=== PATIENT | male | born 1980 | race African-American/Black ===

== ENCOUNTER 2016-11-26 05:58 | Emergency (ER) | payer OTHER ==
[~2016-11-26] VITALS: Ht 193 cm; Wt 90.7 kg
[~2016-11-26 05:58] MED LIST: ACYCLOVIR 800800 MG PO; AUGMENTIN 875875 MG PO; CITRATE OF MAG296 ML PO; COLACE100 MG PO; DOXYCYCLINE 10100 MG PO; IBUPROFEN 600600 M1 PO; IBUPROFEN 800800 M1 PO; NOHOMEMEDICATIONS; NORCO 5-325 TA1 EACH PO; ONDANSETRON HCL4 M2 PO; PAXIL10 MG; PENICILLIN VK500 M1 PO; PREDNISONE 20 M20 MG PO
[2016-11-26 06:03] VITALS: BP 112/70
[2016-11-26] MEDS ORDERED: FLONASE 0.05%50 MCG NASAL (06:21)
[2016-11-26] MEDS ORDERED: CLARITIN10 MG PO (06:21)
[2016-11-26] MEDS ORDERED: AUGMENTIN 875-1 EACH PO (06:21)
== END 2016-11-26 07:27 | disposition home or self-care (01) ==
LOC: ER 05:58
DX: J32.8 Other chronic sinusitis (principal); J30.89 Other allergic rhinitis; B34.9 Viral infection, unspecified; Z91.013 Allergy to seafood; F17.210 Nicotine dependence, cigarettes, uncomplicated; F10.99 Alcohol use, unspecified with unspecified alcohol-induced disorder

== ENCOUNTER 2017-08-28 17:02 | Emergency (ER) | payer OTHER ==
[~2017-08-28] VITALS: Ht 193 cm; Wt 81.7 kg
[~2017-08-28 17:02] MED LIST changes: +AUGMENTIN 875-1 EACH PO; +CLARITIN10 MG PO; +FLONASE 0.05%50 MCG NASAL
[2017-08-28] MEDS ORDERED: ZOFRAN ODT8 MG PO (17:34)
== END 2017-08-28 18:06 | disposition home or self-care (01) ==
LOC: ER 17:02
DX: R11.2 Nausea with vomiting, unspecified (principal); F17.210 Nicotine dependence, cigarettes, uncomplicated; Z91.013 Allergy to seafood

== ENCOUNTER 2019-01-29 13:15 | Emergency (ER) | payer OTHER ==
[~2019-01-29] VITALS: Ht 193 cm; Wt 79.4 kg
[~2019-01-29 13:15] MED LIST changes: +ZOFRAN ODT8 MG PO
[2019-01-29 13:16] VITALS: BP 117/79
[2019-01-29] MEDS ORDERED: FLAGYL500 M1 PO (13:56)
[2019-01-29 14:05] LABS: URINE BILIRUBIN NEGATIVE (Negative); URINE BLOOD NEGATIVE (Negative); URINE CLARITY CLEAR; URINE COLOR YELLOW; URINE GLUCOSE-RANDOM* NEGATIVE (Negative); URINE KETONES NEGATIVE (Negative); URINE LEUKOCYTES-REFLEX NEGATIVE (Negative); URINE NITRITE-REFLEX NEGATIVE (Negative); URINE PROTEIN (DIPSTICK) NEGATIVE (Negative); URINE SPECIFIC GRAVITY 1.015 (1.005-1.035)
== END 2019-01-29 14:15 | disposition home or self-care (01) ==
LOC: ER 13:15
PROVIDERS: Physician Assistant
DX: Z20.2 Contact with and (suspected) exposure to infections with a predominantly sexual mode of transmission (principal); Z20.89 Contact with and (suspected) exposure to other communicable diseases; F17.210 Nicotine dependence, cigarettes, uncomplicated; Z91.013 Allergy to seafood

== ENCOUNTER 2019-02-25 13:19 | Emergency (ER) | payer OTHER ==
[~2019-02-25] VITALS: Ht 193 cm; Wt 81.7 kg
[~2019-02-25 13:19] MED LIST changes: +FLAGYL500 M1 PO
[2019-02-25 13:43] LABS: URINE BILIRUBIN NEGATIVE (Negative); URINE BLOOD NEGATIVE (Negative); URINE CLARITY CLEAR; URINE COLOR YELLOW; URINE GLUCOSE-RANDOM* NEGATIVE (Negative); URINE KETONES NEGATIVE (Negative); URINE LEUKOCYTES NEGATIVE (Negative); URINE NITRITE NEGATIVE (Negative); URINE PROTEIN (DIPSTICK) NEGATIVE (Negative); URINE UROBILINOGEN 0.2 E.U./dl (0.2-1.0)
[2019-02-25 13:47] LABS: ABSOLUTE NEUTROPHILS 1.6 thou/uL (1.4-8.2); BASOPHILS 1.5 % (0.0-2.0); EOSINOPHILS 1.6 % (0.0-3.0); HEMATOCRIT 49.7 % (42.0-52.0); HEMOGLOBIN 16.7 gm/dL (14.0-18.0); LYMPHOCYTES 43.3 % (24.0-44.0); MCH 31.7 pg (26.0-34.0); MCHC 33.6 g/dL (28.0-37.0); MCV 94.4 fL (80.0-100.0); PLATELET COUNT 178 thou/uL (150-400); POLYS 42.6 % (36.0-66.0); RBC 5.27 mil/uL (4.50-6.00); RDW 14.4 % (10.5-14.5); WBC 3.7 thou/uL (4.0-11.0)
[2019-02-25 14:04] LABS: CALCIUM 9.5 mg/dL (8.5-10.1); CREATININE 1.1 mg/dL (0.7-1.3); POTASSIUM 4.2 mmol/L (3.5-5.1)
[2019-02-25 14:08] LABS: TOTAL BILIRUBIN 0.9 mg/dL (<0.1-1.0); TOTAL PROTEIN 7.4 g/dL (6.4-8.2)
[2019-02-25 16:12] VITALS: BP 102/73
== END 2019-02-25 16:12 | disposition home or self-care (01) ==
LOC: ER 13:19
PROVIDERS: Emergency Medicine
DX: K59.00 Constipation, unspecified (principal); R42 Dizziness and giddiness; F17.210 Nicotine dependence, cigarettes, uncomplicated; Z88.6 Allergy status to analgesic agent; Z91.013 Allergy to seafood